=== PATIENT | female | born 1960 | race Caucasian/White ===

== ENCOUNTER 2025-07-15 07:15 | Outpatient (AMB) | payer MEDICARE, OTHER, SELFPAY ==
--- NOTE | 2025-07-15 07:16 | AM.OFFWIN_ITS ---
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 - The patient reports the onset of cold symptoms, including congestion, on Monday. - The patient denies significant rhinorr hea, noting only a small amount in the mornings, and reports breathing through the mouth for the past two nights. - She states that she woke up yesterday with red, itchy, and burning to both eyes. - The patient denies sinus pressure and does not take any medications for sinuses or allergies. - The patient reports minimal to no coug carol. - The patient does not typically get sic k and states this is the first illness in approximately four years. - The patient does not wear contact lens es. - To alleviate symptoms, the patient use d a cold compress on the eyes last night. - She denies fever or chills. - She denies chest pain, SOB, abd pain, or n/v/d. Physical Exam General: Cooperative, healthy appearing, comfortable and no acute distress Orientation/consciousness: Patient oriented x3 Limitations: No limitations Head: Normal to inspection Ears: Hearing grossly normal bilaterally, external ears normal and TM's normal bilaterally Nose: Normal external nose present, normal nares present, and no nasal discharge present. Face and sinus: Sinuses nontender to palpation. Mouth: Normal oral and palatal mucosa present and moist mucous membranes noted. Throat: Tonsils normal. Uvula is midline. Posterior oropharynx with erythema and no exudates. Eyes: Erythema noted to both sclera and conjunctiva bilaterally. Tearing noted. No crusting noted. PERRLA, EOMI. Neck: Normal visual inspection, full ROM. No lymphadenopathy noted. Respiratory: Clear to auscultation bilaterally. Normal respiratory effort, able to speak in complete sentences. No respiratory distress, not tachypneic, no tripod positioning and no use of accessory muscles. Cardiovascular: Regular rate and rhythm. Normal S1 and S2. No m/r/g noted. Skin: No rashes or lesions noted Patient was informed and verbally consented to the use of an ambient scribe for clinic note documentation during this visit [facility] Social History Patient Tobacco Use Status: Never used Tobacco Review of Systems Const All systems reviewed & are unremarkable except as noted in HPI and below Physical Exam Vital Signs: Last Vital Signs Temp 98.1 F 07/15/25 07:17 Pulse 85 07/15/25 07:17 Resp 16 07/15/25 07:17 BP 122/80 07/15/25 07:17 Pulse Ox 98 07/15/25 07:17 Oxygen Delivery Method Room Air 07/15/25 07:17 BMI result Body Mass Index 28.1 Assessment & Plan Assessment & Plan (1) URI (upper respiratory infection): Code(s): J06.9 - Acute upper respiratory infection, unspecified Qualifiers: URI type: acute nasopharyngitis (common cold) Qualified Code(s): J00 - Acute nasopharyngitis [common cold] (2) Conjunctivitis: Code(s): H10.9 - Unspecified conjunctivitis Qualifiers: Conjunctivitis type: acute Acute conjunctivitis type: bacterial Laterality: bilateral Qualified Code(s): H10.33 - Unspecified acute conjunctivitis, bilateral Plan Most likely conjunctivitis from an URI plan - Prescribed eye drops to be used in both eyes. - The recommended dosage is four times a day for five days. - Recommended hygiene measures, including frequently washing pillowcases, towels, and hands. - Prescribed an antihistamine and decongestant combination medication to alleviate congestion. - Prescribed Flonase nasal spray for sinus symptoms. - follow up with PCP as needed or if not better Medications: New cetirizine-pseudoephedrine 5-120 mg ER 1 tab PO BID 14 tabs 0RF 7 days fluticasone propionate 50 mcg/actuation administer into each nostril 1 spray intranasal Q12H 16 grams 0RF ciprofloxacin HCl 0.3% 1 - 2 drops into the right eye four times a day 5 mL 0RF 5 days Coding Level of Care Code Est Pt Level 3 (26882) Diagnoses Acute nasopharyngitis J00 URI type: acute nasopharyngitis (common cold) Acute bacterial conjunctivitis of both eyes H10.33 Conjunctivitis type: acute Acute conjunctivitis type: bacterial Laterality: bilateral
[2025-07-15 07:17] VITALS: BP 122/80; PULSE 85; RESP 16; TEMP 36.7; O2SAT 98; BMI 28.1
== END 2025-07-15 07:41 | disposition home or self-care (01) ==
PROVIDERS: Visit Provider Physician Assistant Medical
DX: J00 Acute nasopharyngitis [common cold] (principal); H10.33 Unspecified acute conjunctivitis, bilateral

== ENCOUNTER → 2025-07-15 07:15 | Outpatient (BNVA) | payer MEDICARE, OTHER, SELFPAY | PROVIDERS: Visit Provider Physician Assistant Medical | DX: J00 Acute nasopharyngitis [common cold] (principal); H10.33 Unspecified acute conjunctivitis, bilateral | CPT/HCPCS: 99212 ==